=== PATIENT | male | born 1955 | race Caucasian/White ===

== ENCOUNTER 2016-09-11 12:50 | Inpatient (IN) | payer OTHER ==
[~2016-09-11] VITALS: Ht 185.4 cm; Wt 105.2 kg
[~2016-09-11 12:50] MED LIST: COLACE100 MG PO; DOXAZOSIN4 M1 PO; KETOROLAC TROME10 MG PO; LAC PO; MACROBID100 MG PO; NORCO1 TA2 PO; OMEPRAZOLE DR20 M1 PO; PYRIDIUM200 MG PO
--- NOTE | 2016-09-11 15:23 | NUR ---
PT CAME INTO THE ED WITH COMPLAINTS OF SWELLING IN HIS RIGHT KNEE AND THROBBING PAIN 10/. PT REPORTS HX OF RIGHT KNEE SURGERY IN THE 70S AND HAS HAD THE KNEE DRAINED BEFORE BUT NOT IN THE PAST 20 YEARS. PT REPORTS SWELLING SINCE LAST NIGHT WITH NO PRECIPITATING REASON. SWELLING NOTED TO THE RIGHT KNEE, NO ECHYMOSIS OR DEFORMITY NOTED. +PMSC DISTALLY FROM THE KNEE, DRAFTER DIRECTIONAL SURVEY < 2 SECONDS. PT A&O X 4, BREATHING EVEN AND UNLABORED. NO SIGNS OF ACUTE OR RESPIRATORY DISTRESS NOTED.
--- NOTE | 2016-09-11 15:26 | NUR ---
PT MOVED FROM H2 TO 2TB AT THIS TIME.
--- NOTE | 2016-09-11 15:26 | NUR ---
PLEASE ENTER FULL NAMES OF STUDENT/RN Documentation completed by (Student Nurse): FROYLAN DELA CRUZ Documentation reviewed by (Registered Nurse): NISREEN LEARY
--- NOTE | 2016-09-11 15:58 | NUR ---
CONSENT COMPLETED AND PLACED IN CHART.
[2016-09-11] MEDS ORDERED: OMEPRAZOLE PO (16:39)
[2016-09-11] MEDS ORDERED: CARDURA4 MG PO (16:39)
--- NOTE | 2016-09-11 16:49 | NUR ---
PT MEDICATED WITH FENTANYL SLOW IVP, NS INFUSING AT 100 ML/HR PER ORDERS. PT ON CM.
[2016-09-11] MEDS ORDERED: UNISOM25 M1 PO (16:51)
--- NOTE | 2016-09-11 17:26 | NUR ---
PT ADMITS TO FEELING BETTER, REPORTS PAIN DECREASED FROM 10/10 TO 7/10.
--- NOTE | 2016-09-11 17:27 | NUR ---
MANUFACTURING MAINTENANCE TECHNICIAN AT BEDSIDE.
--- NOTE | 2016-09-11 17:30 | NUR ---
CALLED FOR REPORT, NO ANSWER.
--- NOTE | 2016-09-11 18:01 | NUR ---
CALLED FOR REPORT, RN BUSY SPEAKING WITH FAMILY MEMBER, WILL CALL BACK. PT IS AWAKE AND ALERT, PT HAS NO REQUESTS AT THIS TIME.
[2016-09-11 18:06] LABS: BASOPHIL % 0.1 % (0-2); PLATELET COUNT 147 x10^3mcL (130-400); RED CELL DISTRIBUTION WIDTH 13.2 % (11.5-14.5)
[2016-09-11 18:07] LABS: ALKALINE PHOSPHATASE 88 U/L (46-116); ALT/SGPT 82 U/L (16-63); AMYLASE 41 U/L (25-115); AST/SGOT 46 U/L (15-37); BILIRUBIN TOTAL 1.2 mg/dL (0.20-1.00); CALCIUM 9.1 mg/dL (8.5-10.1); CARBON DIOXIDE 24.9 mmol/L (21-32); CHLORIDE SERUM 107 mmol/L (98-107); GFR1 > 60 mL/min; GLUCOSE SERUM 143 mg/dL (74-106); LIPASE 116 IU/L (73-393); MAGNESIUM 1.9 mg/dL (1.8-2.4); PHOSPHOROUS 2.7 mg/dL (2.5-4.9); POTASSIUM SERUM 3.8 mmol/L (3.5-5.1); SODIUM SERUM 144 mmol/L (136-145); TOTAL PROTEIN, SERUM 7.3 g/dL (6.4-8.2); TRIGLYCERIDES 35 mg/dL (<150)
[2016-09-11 18:08] LABS: CHOLESTEROL 131 mg/dL (<200); CHOLESTEROL/HDL RATIO 1.9; HDL CHOLESTEROL 70 mg/dL (40-60)
--- NOTE | 2016-09-11 18:09 | NUR ---
REPORT GIVEN TO MAYTE TO RESUME CARE OF PT.
[2016-09-11 18:19] LABS: FREE T4 0.86 ng/dL (0.76-1.46); FREE THYROXINE INDEX 2.6 ug/dL (1.4-4.5); T3 TOTAL 1.86 ng/mL; T4(THYROXINE) 9.5 ug/dL (4.7-13.3)
[2016-09-11 18:27] VITALS: BP 155/93
--- NOTE | 2016-09-11 18:34 | NUR ---
REC'D AOX4, SPEECH CLEAR. C/O RIGHT KNEE PAIN, NOTED BANDAID CDI. ATTACHED TELE 32. NSR. DENIES CHEST PAIN. ON RA, NO SOB NOTED. IV ON RH WNL. ORIENTED TO ROOM AND SURROUNDINGS. CALL LIGHT WITHIN REACH, PROVIDED REPORT TO GUILLERMINA MONTANEZ, FOR CONTINUITY OF CARE.
[2016-09-11 18:35] LABS: APPEARANCE FLUID BLOODY; COLOR FLUID RED; SITE FLUID RIGHT; SOURCE FLUID SYNOVIAL FLUID; WBC FLUID 59200 /cumm
[2016-09-11 18:36] LABS: LYMPHOCYTE FLUID 5 %; MONOCYTE FLUID 0 %; RBC FLUID 1356000 /cumm
--- NOTE | 2016-09-11 19:39 | NUR ---
RECIEVED PT AT BEDSIDE. PT IS IN NO DISTRES. AAOX4. PT HAS CTA LUNG SOUNDS ON RA. BOWEL SOUNDS ACTIVE. LAST BM WAS TODAY. NO EDEMA NOTED, OTHER THEN THE RIGHT KNEE WHICH IS WARM TO TOUCH. PT STATED PAIN 9/10 SO I ADMINISTERED MORPHINE PER EMAR. WILL REASSESS SHORTLY. BED IN LOWEST POSTION AND CALL LIGHT WITHIN REACH. WILL CONTINUE TO MONITOR.
[2016-09-11] MEDS ORDERED: GOOD SENSE OMEP20 MG PO (19:42)
[2016-09-11 21:00] VITALS: BP 129/90
[2016-09-11 21:21] LABS: microscopic required? NO
[2016-09-11 21:43] LABS: UA SPECIFIC GRAVITY >=1.030 (1.005-1.035); urine erythrocyte NEGATIVE (NEGATIVE)
[2016-09-11 21:55] LABS: AMPHETAMINE QUAL UR NONE DETECTED (NEG <=1000)
--- NOTE | 2016-09-11 22:23 | NUR ---
PT REFUSES AMBIEN, WOULD LIKE AN ALTERNATIVE. DR. NUNEZ MADE AWARE.
--- NOTE | 2016-09-11 22:50 | NUR ---
PT WOULD LIKE TO TAKE CADURA TODAY, HE STATES HE TAKES IT EVERY NIGHT. DR. QUIROZ MADE AWARE. AWAITING ORDERSS.
--- NOTE | 2016-09-11 23:45 | NUR ---
I HAVE REVIEWED THE DATA COLLECTION BY MANAGER PLACEMENT (NAME): MARIKA SALINAS RN ENTERED ON (DATE/TIME): 09/11/16, 0441 I CONCUR WITH THE DATA AND ANY EXCEPTIONS OR COMMENTS ARE LISTED BELOW:
--- NOTE | 2016-09-12 02:55 | NUR ---
PT IS ASLEEP IN BED. NO ACUTE DISTRESS NOTED. BED IS IN LOWEST POSITION AND CALL LIGHT WITHIN REACH. WILL CONTINUE TO MONITOR.
--- NOTE | 2016-09-12 06:01 | NUR ---
PT RESTING IN BED. ALL NEEDS HAVE BEEN MET. CALLED DIETARY TO PLACE ORDER OF SCRAMBLED EGGS, OATMEAL, AND FRESH FRUIT PER PT REQUEST. BED IN LOWEST POSITION WITH CALL LIGHT WITHIN REACH. WILL ENDORSE TO ONCOMING SHIFT.
[2016-09-12 06:22] LABS: BASOPHIL % 0.2 % (0-2); PLATELET COUNT 132 x10^3mcL (130-400); RED CELL DISTRIBUTION WIDTH 13.3 % (11.5-14.5)
[2016-09-12 06:26] LABS: CALCIUM 8.1 mg/dL (8.5-10.1); CARBON DIOXIDE 14.5 mmol/L (21-32); CHLORIDE SERUM 106 mmol/L (98-107); CREATININE SERUM 0.8 mg/dL (0.7-1.3); GFR1 > 60 mL/min; GLUCOSE SERUM 134 mg/dL (74-106); MAGNESIUM 1.9 mg/dL (1.8-2.4); POTASSIUM SERUM 3.5 mmol/L (3.5-5.1); SODIUM SERUM 141 mmol/L (136-145)
[2016-09-12 06:51] VITALS: BP 126/64
--- NOTE | 2016-09-12 07:07 | NUR ---
RECIEVED REPORT FROM RITA RN AT BEDSIDE. PT IS AAOX4 ABLE TO FOLLOW VERBAL COMMANDS WITH CLEAR COMMUNICATIONS. ON TELE #32 NSR, DENIES CHEST PAIN. SCD ON BLE. FOUND PT ON RA NO SIGNS OF SOB OR ACUTE DISTRESS. PT R LEG IS ELEVATED AND WARM TO TOUCH WITH ICE PACK ON R KNEE. PT RATED R KNEE PAIN 8/10 AND PT REQUESTED FOR NORCO TO RELIEVE PAIN. WILL MEDICATE PER EMAR. BED AT LOW AND CALL LIGHT WITHIN REACH.
--- NOTE | 2016-09-12 08:19 | NUR ---
APPLIED KPAD TO R KNEE. PT C/O R KNEE PAIN 101/10 WILL MEDICATE PER EMAR.
[2016-09-12 09:15] VITALS: BP 128/71
--- NOTE | 2016-09-12 11:15 | NUR ---
PT WILL BE WORKING WITH PT AND RATES R KNEE PAIN 11/03 WILL MEDIATE BEFORE PT WORKS WITH PT.
[2016-09-12 12:40] VITALS: BP 128/77
--- NOTE | 2016-09-12 14:43 | NUR ---
PT C/O R KNEE PAIN 01/04 WILL MEDICATE PER EMAR. SPOKE WITH DR. CHACON REGARDING BETTER PAIN MANAGEMENT.
--- NOTE | 2016-09-12 15:25 | NUR ---
PT NOTE [id number] Pt IS A 61 Y/O MALE ADMITTED DUE TO C/O R KNEE PAIN; DX WITH HEMARTHROSIS, R/O SEPTIC ARTHRITIS. Pt IS TO HAVE ORTHO CONSULT WITH DR YING. PMH: KIDNEY STONES, BPH, COPD, HEPATITIS C PSH: R TKR, LIGAMENT REPAIR Pt LIVES WITH BROTHER IN A SSH, WAS INDEP IN ALL ADLs AND AMBULATION NO ASSISTIVE DEVICE; ABLE TO DRIVE; DME: BORROWED BROTHER'S CRUTCHES Pt WAS CLEARED FOR PT PER RN. Pt WAS SEEN AWAKE RESTING IN BED, AGREED TO PARTICIPATE W/PT. S:REPORTS PAIN ON R KNEE, 8/; UNBALE TO MOVE R LE DUE TO PAIN O:BP AT REST 133/74, HR 84, SaO2 94% RA BED MOBILITY: SUPINE-SIT MIN ASSIST; ROLLING SUP TRANSFERS: SIT-STAND MIN ASSIST STANDING BALANCE F/F- GAIT 40 FT CRUTCHES MIN/CGA; GOOD GAIT SEQUENCE; SLOW ANUJ; GOOD COMPLIANCE WITH NWB; CONT TO C/O PAIN ON R KNEE Pt REQUESTED TO USE BATHROOM, IV LINE INTACT, Pt IS TO USE CALL LIGHT FOR ASSIST BTB SINCE Pt REQUESTED MORE TIME; RN AND BATTERY HAND NOTIFIED. A:Pt DEMONSTRATES WEAKNESS, DECREASED BALANCE, AND GAIT INSTABILTIY; NWB ON RLE UNTIL CLARIFIED WITH ORTHO; FALL RISK. Pt WAS EDUCATED ON PROPER GAIT SEQUENCE USING CRUTCHES, GOOD RETURN DEMO. P:POC TO INCLUDE THEREX, THERACT, GAIT TRAINING, BALANCE EX, SAFETY EDUC; ONCE DAILY 6X/WK X1 WEEK. SNF POST ACUTE IS RECOMMENDED TO CONT W/REHAB. DX AND POC DISCUSSED W/CIVIL DIVISION COMMANDER DEPUTY SHERIFF. EVAL30 PVE(2) SET-UP, SAFETY DURING GAIT [id number], [id number], TUG SCORE=13sec
[2016-09-12 17:00] VITALS: BP 124/83
--- NOTE | 2016-09-12 17:20 | NUR ---
TEMPT 101.8 WILL NOTIFY DM. STARTED COOLING MEASURE AND WILL MEDIATE PER EMAR.
--- NOTE | 2016-09-12 17:46 | NUR ---
PULLED RHAND IV OUT, BLEEDING STOPPED. NEW IV ESTABLISHED ON LHAND 22G, IV FLUSHES WELL. CONNECTED BACK TO NS AT 100ML/HR. PT TOLERATED PROCEDURE WELL. BED AT LOW AND CALL LIGHT WITHIN REACH.
[2016-09-12 18:20] LABS: BASOPHIL % 0.4 % (0-2); RED CELL DISTRIBUTION WIDTH 13.2 % (11.5-14.5)
--- NOTE | 2016-09-12 18:21 | NUR ---
PT C/O R KNEE PAIN 11/03 WILL MEIDICATE PER EMAR.
[2016-09-12 18:22] LABS: PLATELET COUNT 120 x10^3mcL (130-400)
--- NOTE | 2016-09-12 20:07 | NUR ---
RECEIVED PT FROM AM NURSE IN NO ACUTE DISTRESS. LAYING IN BED COMFORTABLY. A/OX4. TELE #32 NSR. PULSES PALPABLE AND EVEN. NO EDEMA NOTED. LUNGS CLEAR ON RA. BREATHING EVEN AND UNLABORED. BS ACTIVE X4 QUADRANTS. ABD SOFT AND ROUND. VOIDS FREELY. GENERALIZED WEAKNESS. R KNEE SWELLING NOTED. K-PAD IN PLACE. AMBULATORY WITH CRUTCHES AND ASSIST. REPORTS MILD PAIN TO R KNEE AT THIS TIME. WILL MEDICATE PER EMAR. IV INTACT AND PATENT TO L HAND. BED IN LOWEST POSITION. CALL LIGHT INSTRUCTIONS REINFORCED. WILL CONT TO MONITOR.
[2016-09-12 21:23] VITALS: BP 135/65
--- NOTE | 2016-09-12 22:30 | NUR ---
C/O R KNEE PAIN, MORPHINE ADMINISTERED PRESCRIBED, WILL CONT TO MONITOR.
--- NOTE | 2016-09-13 05:05 | NUR ---
SLEPT PERIODICALLY THROUGHOUT SHIFT. ALL NEEDS MET AND ATTENDED TO. IV INTACT AND PATENT. LAYING IN BED WITH NO ACUTE DISTRESS. BED IN LOW, CALL LIGHT WITHIN REACH. WILL CONT TO MONITOR AND ENDORSE ALL CARE TO ONCOMING NURSE.
--- NOTE | 2016-09-13 05:38 | NUR ---
TEMP 100.8. TYLENOL ADMINISTERED PRESCRIBED. WILL CONT TO MONITOR.
[2016-09-13 05:48] VITALS: BP 114/64
[2016-09-13 06:37] LABS: BASOPHIL % 0.3 % (0-2); PLATELET COUNT 132 x10^3mcL (130-400)
[2016-09-13 06:46] LABS: CALCIUM 8.6 mg/dL (8.5-10.1); CARBON DIOXIDE 18.5 mmol/L (21-32); CHLORIDE SERUM 106 mmol/L (98-107); CREATININE SERUM 0.8 mg/dL (0.7-1.3); GFR1 > 60 mL/min; GLUCOSE SERUM 129 mg/dL (74-106); SODIUM SERUM 140 mmol/L (136-145)
--- NOTE | 2016-09-13 07:10 | NUR ---
PT IN BED. EFFORTLESS BREATHING. ASSISTED PT TO RESTROOM, PT AMBULATES WITH CRTCHES ASSIST. IV INFUSING WELL TO LEF[place] #22 NS 100ML/HR. BED IN LOWEST POSITION CALL LIGHT WITHIN REACH.
[2016-09-13 09:45] VITALS: BP 132/76
--- NOTE | 2016-09-13 11:30 | NUR ---
DR. YING IN TO PERFORM DRAINAGE OF RIGHT KNEE. MEDICATED PRIOR TO DRAINAGE FOR COMFORT. ETHYL CHLORIDE ADMINISTERED BY DR. YING. PT IN SOME DISCOMFORT DURING PROCEDURE. TOLERATED WELL.
--- NOTE | 2016-09-13 12:43 | NUR ---
P.T. NOTES 09/13/16 ORTHO (DR YING) FOR DRAINAGE (R)KNEE PER CHART 3813-2121 S:Pt WAS SEEN AWAKE & ALERT IN BED, OWN CRUTCHES IN ROOM, ORIENTED x3, ABLE TO FOLLOW COMMANDS, AGREEABLE & COOPERATIVE W/ P.T.; DEMO (R)KNEE PAIN (P.S.10/04), NO C/O DIZZINESS AT THIS TIME, PRE MEDICATED. O: BED MOBILITY: INDEP IN SUPINE TO SIT TRANSFERS: CG/SBA IN SIT TO STAND W/ CRUTCHES, CG/SBA IN TOILETTING W/ CRUTCHES, ABLE TO PERFORM PERINEAL CARE GAIT: CG ASSIST W/ CRUTCHES X 53 FT, (R)LE NWB UNTIL VERIFIED W/ ORTHO MD Pt ASSISTED TO BED SAFELY, HOB, LE ELEVATED, CALL GASTELUM, PHONE, TABLE IN REACH; ON ROOM AIR; APPRECIATIVE. A:Pt DEMO GOOD RESPONSE TO TX; FALL RISK; ABLE TO MAINTAIN WB PREC; DEMO SWING-TO GAIT PATTERN; NO NOTED LOSS OF BALANCE AT THIS TIME; PROGRESSING W/ GAIT ENDURANCE & FUNC MOBILITY; Pt EDUC ON SAFE GAIT SEQUENCING, PACING DUE TO TENDS TO AMBU IN FAST PACE, HEP, VERBALIZED UNDERSTANDING, GOOD FOLLOW THRU. P:CONT PT; POC REVIEWED W/ SPEECH THERAPIST TECHNICIAN. EX8,TA30,GT15
--- NOTE | 2016-09-13 13:30 | NUR ---
PT C/O PAIN AT RIGHT KNEE 11/03 MEDICATED PT PER EMAR WILL CONTINUE TO MONITOR. KNEE ELEVATED ON PILLOWS. COLD PACKS APPLIED. CALL LIGHT WITHIN REACH.
[2016-09-13 14:31] VITALS: BP 112/75
--- NOTE | 2016-09-13 17:45 | NUR ---
PT TEMP. 100.7 MEDICATED PER EMAR. IMPLEMENTED COOLING MEASURES. CALL LIGHT WITHIN REACH.
[2016-09-13 18:07] VITALS: BP 110/81
--- NOTE | 2016-09-13 19:36 | NUR ---
RECEIVED PT FROM AM NURSE IN NO ACUTE DISTRESS. LAYING IN BED COMFORTABLY. A/OX4. TELE #32 NSR. PULSES PALPABLE AND EVEN. NO EDEMA NOTED. LUNGS CLEAR ON RA. BREATHING EVEN AND UNLABORED. BS ACTIVE X4 QUADRANTS. ABD SOFT AND ROUND. VOIDS FREELY. GENERALIZED WEAKNESS. R KNEE SWELLING NOTED, WRAPPED WITH YARY BANDAGE, S/P ASPIRATION DRAINAGE TODAY, AMBULATORY WITH CRUTCHES AND ASSIST. REPORTS MILD PAIN TO R KNEE AT THIS TIME. WILL MEDICATE PER EMAR. IV INTACT AND PATENT TO L HAND. BED IN LOWEST POSITION. CALL LIGHT INSTRUCTIONS REINFORCED. WILL CONT TO MONITOR.
[2016-09-13 20:54] VITALS: BP 132/65
--- NOTE | 2016-09-13 21:01 | NUR ---
AMBULATED WITH PT IN HALLWAY AT THIS TIME. PT AMBULATORY WITH SLOW STEADY GAIT WITH CRUTCHES
--- NOTE | 2016-09-14 01:00 | NUR ---
IV TO L HAND INFILTRATED AND DC'D, NEW IV STARTED TO R HAND 20G, INFUSING WELL, WILL CONT TO MONITOR.
--- NOTE | 2016-09-14 03:15 | NUR ---
TEMP 101.2, TYLENOL ADMINISTERED, COOLING MEASURES INITIATED, WILL CONT TO MONITOR.
--- NOTE | 2016-09-14 05:06 | NUR ---
SLEPT PERIODICALLY THROUGHOUT SHIFT. ALL NEEDS MET AND ATTENDED TO. IV INTACT AND PATENT TO R HAND, CALL LIGHT WITHIN REACH, REMAINS IN STABLE CONDITION, WILL CONT TO MONITOR AND ENDORSE ALL CARE TO ONCOMING NURSE.
[2016-09-14 05:40] VITALS: BP 107/76
[2016-09-14 06:13] LABS: BASOPHIL % 0.3 % (0-2); PLATELET COUNT 142 x10^3mcL (130-400); RED CELL DISTRIBUTION WIDTH 12.6 % (11.5-14.5)
[2016-09-14 06:45] LABS: CALCIUM 8.5 mg/dL (8.5-10.1); CHLORIDE SERUM 105 mmol/L (98-107); CREATININE SERUM 0.9 mg/dL (0.7-1.3); GFR1 > 60 mL/min; GLUCOSE SERUM 133 mg/dL (74-106); MAGNESIUM 1.7 mg/dL (1.8-2.4); PHOSPHOROUS 3.8 mg/dL (2.5-4.9); POTASSIUM SERUM 3.7 mmol/L (3.5-5.1); SODIUM SERUM 139 mmol/L (136-145)
--- NOTE | 2016-09-14 07:15 | NUR ---
PT IN HIGH FOWLERS, EFFORTLESS BREATHING, DENIES SOB. C/O PAIN AT RIGHT KNEE. YARY WRAP IN PLACE. IV INFUSING WELL TO RIGHT HAND #20 NS 100ML/HR. BED IN LOWEST POSITION, CALL LIGHT WITHIN REACH. WILL CONTINUE TO MONITOR.
[2016-09-14 09:26] VITALS: BP 108/73
--- NOTE | 2016-09-14 12:35 | NUR ---
PT C/O PAIN 7/10 TO RIGHT KNEE. MEDICATED PT PER EMAR. IMPLEMENTED COLD THERAPY WELL. PT TOLERATED WELL. POST PAIN ADMINISTRATION, PT STATES PAIN 1/10. STATES FEELS COMFORTABLE AT MOMENT. WILL CONTINUE TO MONITOR.
--- NOTE | 2016-09-14 14:00 | NUR ---
CHANGED BANDAID AT ASPIRATION ENTRANCE SITE AT RIGHT KNEE. APPLIED YARY BANDAGE, ELEVATED EXTREMITY, APPLIED COLF THERAPY. PT REPORTS COMFORT. CALL LIGHT WITHIN REACH.
[2016-09-14 14:21] VITALS: BP 135/85
--- NOTE | 2016-09-14 14:45 | NUR ---
AMBULATED ONE FULL TRIP AROUND UNIT. CRUTCH ASSIST, WITH PARTIAL WEIGHT BEARING ON RIGHT LEG. PT TOLERATED ACTIVITY WELL. CHANGED BED LINENS AND PROVIDED COMFORT. POST AMBULATION PT STATES PAIN IS 4/10 TO RIGHT KNEE. WILL MEDICATED PER EMAR. CALL LIGHT WITHIN REACH.
--- NOTE | 2016-09-14 17:30 | NUR ---
PASSED AFTERNOON MEDS. PT TOLERATED WELL. PT DENIES SOB, EFFORTLESS BREATHING. TEMP: 99.1. CALL LIGHT WITHIN REACH.
[2016-09-14 18:36] VITALS: BP 238/89
--- NOTE | 2016-09-14 20:01 | NUR ---
RECEIVED PT IN BED AAOX4 PT DENY PAIN AT THE MOMENT , RIGHT KNEE WITH YARY WRAP C/D/I ELEVATED ON THE PILLOW , PEDAL PULSE WNL . PIV TO RIGHT HANDS WITH NS AT 100ML/HR PIV SITE CLEAR NO REDNESS NOTED .
[2016-09-14 21:24] VITALS: BP 112/70
--- NOTE | 2016-09-14 21:40 | NUR ---
PT C/O RIGHT KNEE PAIN 6/10 PERCOCET 1TAB GIVEN PER PT'S REQUEST.
--- NOTE | 2016-09-15 02:37 | NUR ---
PT;S IN BED WITH EYES CLOSED , PIV INTACT INFUSING WELL
--- NOTE | 2016-09-15 04:08 | NUR ---
PT C/O KNEE MADELINE 10/04 REQUESTED FOR PERCOCET , WILL MEDICATE PT NEEDED .
--- NOTE | 2016-09-15 05:44 | NUR ---
I HAVE REVIEWED THE DATA COLLECTION BY STRUCTURES ENGINEER (NAME): RACHELLE GONZALEZ ENTERED ON (DATE/TIME): I CONCUR WITH THE DATA AND ANY EXCEPTIONS OR COMMENTS ARE LISTED BELOW:
[2016-09-15 06:11] VITALS: BP 120/73
--- NOTE | 2016-09-15 06:24 | NUR ---
NO CHANGES OF CONDITION NOTED , ALL DUE MEDS GIVEN NO REACTION NOTED , PT;S IN BED AWAKE WATCHING NEWS , DENY PAIN AT THE MOMENT , PIV INTACT INFUSING WELL , DRESSING TO RIGHT KNEE C/D/I , RIGHT LEG ELEVATED ON THE PILLOW .
[2016-09-15 06:41] LABS: BASOPHIL % 0.3 % (0-2); PLATELET COUNT 179 x10^3mcL (130-400); RED CELL DISTRIBUTION WIDTH 12.8 % (11.5-14.5)
--- NOTE | 2016-09-15 07:05 | NUR ---
PT IN FOWLERS. NO DISTRESS NOTED. IV INFUSING WELL TO RIGHT HAND NS 100ML/HR. BED IN LOWEST POSITION, CALL LIGHT WITHIN REACH.
[2016-09-15 07:20] LABS: CALCIUM 8.7 mg/dL (8.5-10.1); CARBON DIOXIDE 27.3 mmol/L (21-32); CHLORIDE SERUM 103 mmol/L (98-107); CREATININE SERUM 0.9 mg/dL (0.7-1.3); GFR1 > 60 mL/min; GLUCOSE SERUM 146 mg/dL (74-106); POTASSIUM SERUM 4.3 mmol/L (3.5-5.1); SODIUM SERUM 141 mmol/L (136-145)
[2016-09-15 09:17] VITALS: BP 130/83
--- NOTE | 2016-09-15 12:40 | NUR ---
PASSED NOON MEDS, PT TOLERATED WELL. PT STATES CHILLS, ACQUIRED AXILLARY TEMP:97.7. CALL LIGHT WITHIN REACH.
--- NOTE | 2016-09-15 15:05 | NUR ---
PT NOTES TIME [id number] S: CLEARED BY RN FOR P.T. TX. PATIENT IS AWAKE & ALERT IN A SEMI FITZGERALD POSITION IN BED. AGREEABLE TO P.T. TX. C/O PAIN ON R KNEE 11/03. RN MEDICATED PATIENT FOR PAIN. THEN PATIENT'S PAIN ON R KNEE DECREASED TO 07/04. O: VS AT REST BP 138/83, HR 104 BPM, SPO2 ON RA 93%. BED MOBILITY: SUPINE>SIT INDEPENDENT. TRANSFER: SIT<>STAND W/ CRUTCHES SBA/CGA. PATIENT ABLE TO DEMO'S G SEQUENCE FOR A SAFE SIT<>STAND TRANSFER W/ CRUTCHES. GAIT: 60FT X 3 W/ CRUTCHES CGA. SPOKE W/ DR. YING REGARDING PATIENT'S WB STATUS ON R LE. DR. YING GAVE CLEARANCE FOR WBAT. PATIENT HAS ANTALGIC GAIT. PATIENT DEMO'S A G GAIT PATTERN W/ CRUTCHES. NO LOB OBSRVED. R KNEE EXT LAG. GAIT DISTANCE LIMITED D/T TO R KNEE PAIN & REQUIRES MULTIPLE STANDING REST PERIOD DURING GAIT. EDUCATED PATIENT ON SAFETY FOR FALL PREVENTION, ENERGY CONSERVATION, PROPER POSITIONING OF R LE TO PREVENT FURTHER R KNEE FLEX TIGHTNESS, & HEP FOR ROM W/ G UNDERSTANDING. COOPERATIVE & APPRECIATIVE OF CARE. INSTRUCTED FOR AAROM SEATED KNEE FLEX/EXT ELLYN. PATIENT IS SAFELY & COMFORTABLY SITTING UP AT EOB W/ CALL BUTTON & TABLE IN REACH. RN NOTIFIED. P: DISCUSSED W/ PRIMARY PHYSICAL THERAPIST GT15',[id number]',PVE(CONSULTED W/ DR. YING)
[2016-09-15] MEDS ORDERED: ROC1PM IV (16:42)
[2016-09-15] MEDS ORDERED: CLEOCIN PH600 MG/4 M IV (16:43)
[2016-09-15] MEDS ORDERED: LAC PO (16:43)
[2016-09-15] MEDS ORDERED: VIS25 PO (16:44)
[2016-09-15] MEDS ORDERED: COL100 PO (16:44)
[2016-09-15] MEDS ORDERED: APAP/OXYCODONE1 TA4 PO (16:45)
[2016-09-15] MEDS ORDERED: MOR2I IV (16:45)
[2016-09-15] MEDS ORDERED: IPRATROPIUM BROM3 M2 HHN (16:46)
[2016-09-15 16:53] VITALS: BP 130/83
--- NOTE | 2016-09-15 17:45 | NUR ---
PASSED AFTERNOON MEDS, PT TOLERATED WELL. CALL LIGHT WITHIN REACH.
[2016-09-15 18:09] VITALS: BP 145/81
--- NOTE | 2016-09-15 18:50 | NUR ---
DISCHARGE INSTRUCTIONS GIVEN TO PT. TRANSFER CONSENT WITNESSED. PT TO KEEP IV ACCESS FOR CONTINUATION OF IV ABX. PT VERBALIZED INSTRUCTIONS FOR FOLLOW UP AT FACILITY. REFERRAL INSTRUCTIONS GIVEN TO PT.
--- NOTE | 2016-09-15 19:25 | NUR ---
CALLED REPORT GIVEN TO RUPERTO CAMPOS AT [facility]. SPECTROGRAPH OPERATOR TIME AT 1999. REPORT GIVEN TO ONCOMING NURSE.
--- NOTE | 2016-09-15 19:30 | NUR ---
PT IS AAOX4. PERCOCET GIVEN FOR PAIN 6/10 AT RIGHT KNEE. PT LUNG SOUNDS CTA ON RA. IV PRESENT IN RFA, SALINE LOCK. PT IS WAITING TO BE DISCHARGED. WILL CONTINUE TO MONITOR.
--- NOTE | 2016-09-15 20:45 | NUR ---
PT PICKED UP BY [facility]TT[facility] BE TAKEN TO SNF ALL BELONGINGS WITH PT. IV LEFT IN RFA FOR CONTINUED MEDICATION PURPOSES. PT IN NO ACUTE DISTRESS AND IS GOOD SPIRITS. ID BAND REMOVED. GEAR TOOTH LAPPING MACHINE OPERATOR MADE AWARE.
== END 2016-09-15 20:41 | DRG 351 ==
LOC: ED 12:50 → DU 16:48 → MU 09-14 17:56
PROVIDERS: Emergency Medicine; Family Medicine; ADMIT Family Medicine
PROC: 0S9C3ZZ Drainage of Right Knee Joint, Percutaneous Approach (ICD-10-PCS; principal; 2016-09-11)
DX: M25.061 Hemarthrosis, right knee (principal); N17.0 Acute kidney failure with tubular necrosis; N40.0 Benign prostatic hyperplasia without lower urinary tract symptoms; B18.2 Chronic viral hepatitis C; J44.9 Chronic obstructive pulmonary disease, unspecified; Z87.442 Personal history of urinary calculi; Z96.641 Presence of right artificial hip joint; Z96.651 Presence of right artificial knee joint; Z68.30 Body mass index [BMI] 30.0-30.9, adult; Z87.891 Personal history of nicotine dependence; E83.42 Hypomagnesemia; Z82.3 Family history of stroke; Z82.49 Family history of ischemic heart disease and other diseases of the circulatory system; Z83.6 Family history of other diseases of the respiratory system; Z88.2 Allergy status to sulfonamides
CPT/HCPCS: 80307; 83880; 84439; 97110-GP; 97116-GP; 97530-GP; J0696; J1170; J2001; J2270; J3010; J3475; J3490; J7030; J7620; Q0177